=== PATIENT | male | born 1975 | race Native Hawaiian/Other Pacific Islander ===

== ENCOUNTER 2022-03-27 10:54 | Outpatient (CLI) | payer BC | END 2022-03-27 19:17 | disposition home or self-care (01) | LOC: RESP 10:54 | PROVIDERS: ATTEND Specialist | DX: R00.2 Palpitations (principal); I48.91 Unspecified atrial fibrillation; Z72.0 Tobacco use ==

== ENCOUNTER 2022-10-11 10:28 | Outpatient (CLI) | payer BC | END 2022-10-11 21:47 | disposition home or self-care (01) | LOC: CT 10:28 | PROVIDERS: ATTEND Internal Medicine | DX: S19.80XA Other specified injuries of unspecified part of neck, initial encounter (principal); Y92.89 Other specified places as the place of occurrence of the external cause ==

== ENCOUNTER 2022-10-15 12:21 | Outpatient (CLI) | payer BC | END 2022-10-15 19:14 | disposition home or self-care (01) | LOC: US 12:21 | PROVIDERS: ATTEND Internal Medicine | DX: E04.1 Nontoxic single thyroid nodule (principal) ==